=== PATIENT | male | born 1975 | race Two or more races ===

== ENCOUNTER 2022-04-04 06:56 | Inpatient (IN) | payer OTHER ==
[~2022-04-04] VITALS: Ht 185.4 cm; Wt 227.7 kg
[2022-04-04 08:46] LABS: CLARITY URINE CLEAR (CLEAR); COLOR URINE YELLOW (YELLOW); KETONES URINE NEGATIVE (NEGATIVE); LEUKOCYTE ESTERASE URINE NEGATIVE (NEGATIVE); NITRITE URINE NEGATIVE (NEGATIVE); OCCULT BLOOD URINE 1+ (NEGATIVE); PH URINE 5.5 (4.5-8.0); PROTEIN URINE 3+ (NEGATIVE); SPECIFIC GRAVITY URINE 1.016 (1.005-1.030)
[2022-04-04 09:12] LABS: BASOPHILS % 0.4 % (0.0-2.0); EOSINOPHILS % 0.8 % (0.0-5.0); HEMATOCRIT. 33.5 % (42.0-52.0); HEMOGLOBIN. 11.2 g/dL (14.0-18.0); LYMPHOCYTES % 8.5 % (20.0-50.0); MEAN CORPUSCULAR HEMOGLOBIN 31.3 pg (28.0-32.0); MEAN CORPUSCULAR VOLUME 93.4 fL (80.0-94.0); MONOCYTES % 4.6 % (2.0-8.0); NEUTROPHILS % 85.7 % (40.0-76.0); PLATELET 319 x1000/uL (130-400); RED BLOOD CELL COUNT 3.58 mill/uL (4.7-6.1); RED CELL DISTRIBUTION WIDTH 14.4 % (11.6-14.6)
[2022-04-04 09:15] LABS: CHLORIDE 100 mEq/L (98-107)
[2022-04-04] MEDS ORDERED: AMLODIPINE 5MG TABLET PO ONE (10:00)
[2022-04-04] MEDS ORDERED: LISINOPRIL 20MG TABLET PO ONE (10:00)
[2022-04-04] MEDS ORDERED: NITROGLYCERIN OINT 1GM/INCH UDPKT TD ONE (12:45)
[2022-04-04] MEDS ORDERED: ASPIRIN 325MG EC TABLET PO ONE (12:45)
[2022-04-04] MEDS ORDERED: ENOXAPARIN 100MG/ML SYR SUBCUT NR (13:00)
[2022-04-04] MEDS ORDERED: NITROGLYCERIN OINT 1GM/INCH UDPKT TD NR (13:15)
[2022-04-04] MEDS: ASPIRIN 325MG EC TABLET PO NR ×2 (13:16→13:49)
[2022-04-04 15:01] LABS: INR 1.1; PROTHROMBIN TIME 12.1 sec (9.6-11.0)
[2022-04-05] MEDS ORDERED: ASPI81TA43 PO (00:23)
[2022-04-05] MEDS ORDERED: CARV25TA47 PO (00:23)
[2022-04-05] MEDS ORDERED: IPRATROPIUM/ALBUTEROL 0.5-3(2.5)MG/3ML NEB HHN PRN (00:30)
[2022-04-05] MEDS ORDERED: MAGNESIUM/ALUMINUM HYDROXIDE/SIMETHICONE 30ML UDC PO PRN (00:30)
[2022-04-05] MEDS ORDERED: DOCUSATE SODIUM 100MG CAPSULE PO PRN (00:30)
[2022-04-05] MEDS ORDERED: ZOLPIDEM TARTRATE 5MG TABLET PO PRN (00:30)
[2022-04-05] MEDS ORDERED: ACETAMINOPHEN 325MG TABLET PO PRN (00:30)
[2022-04-05] MEDS ORDERED: ENOXAPARIN 150MG/ML SYR SUBCUT SCH ×2 (01:30→06:00)
[2022-04-05 02:00] VITALS: BP 145/100
[2022-04-05 04:00] VITALS: BP 148/101
[2022-04-05] MEDS ORDERED: DEXTROSE 50% WATER 50ML SYRINGE IV PRN (04:30)
[2022-04-05] MEDS ORDERED: PANTOPRAZOLE 40MG DR TABLET PO SCH (06:30)
[2022-04-05] MEDS: BLOOD SUGAR DIAGNOSTIC STRIP TEST SCH ×2 (07:20→11:57)
[2022-04-05 08:25] VITALS: BP 172/99
[2022-04-05] MEDS: INSULIN LISPRO 100 UNITS/ML SUBCUT SCH ×2 (08:55→11:57)
[2022-04-05] MEDS ORDERED: TAMSULOSIN HCL 0.4MG SR CAPSULE PO SCH (09:00)
[2022-04-05] MEDS ORDERED: AMLODIPINE 10MG TABLET PO SCH (12:15)
[2022-04-05 12:30] VITALS: BP 185/121
[2022-04-05] MEDS ORDERED: HYDRALAZINE HCL 100MG TABLET PO ONE ×2 (13:45)
[2022-04-05] MEDS ORDERED: HYDRALAZINE HCL 100MG TABLET PO NR (14:15)
[2022-04-05] MEDS ORDERED: METOPROLOL TARTRATE 100MG TABLET PO SCH ×2 (14:30→21:00)
[2022-04-05] MEDS ORDERED: METOPROLOL TARTRATE 50MG TABLET PO SCH (15:00)
[2022-04-05 15:45] VITALS: BP 145/91
[2022-04-05 18:04] VITALS: BP 150/88
[2022-04-05] MEDS ORDERED: ATORVASTATIN CALCIUM 40MG TABLET PO SCH (21:00)
[2022-04-05] MEDS ORDERED: HYDRALAZINE HCL 100MG TABLET PO SCH (22:00)
[2022-04-06] MEDS ORDERED: ASPIRIN 81MG TABLET PO SCH (09:00)
== END 2022-04-05 17:50 | disposition short-term general hospital (02) | DRG 190 ==
LOC: ER 07:08 → CANBEDREQ 17:41 → MICUSO 23:35 → ENRESERV 04-05 00:40 → 6WST 04-05 01:45
PROVIDERS: ADMIT Internal Medicine Pulmonary Disease; ATTEND Internal Medicine Pulmonary Disease
DX: I21.4 Non-ST elevation (NSTEMI) myocardial infarction (principal); N17.0 Acute kidney failure with tubular necrosis; E43 Unspecified severe protein-calorie malnutrition; Z68.44 Body mass index [BMI] 60.0-69.9, adult; I10 Essential (primary) hypertension; D64.9 Anemia, unspecified; E11.9 Type 2 diabetes mellitus without complications; Z20.822 Contact with and (suspected) exposure to COVID-19; E66.01 Morbid (severe) obesity due to excess calories; Z86.711 Personal history of pulmonary embolism; Z71.3 Dietary counseling and surveillance; Z88.2 Allergy status to sulfonamides
CPT/HCPCS: 36415; 71045; 80053; 81003; 82962; 83880; 84484; 85025; 87426; 93005; 93306; 97162; 99285; C9803; J1650; J1815